=== PATIENT | male | born 1960 | race Caucasian/White ===

== ENCOUNTER 2022-04-10 07:31 | Day surgery (SDC) | payer BC ==
[2022-04-05 11:56] LABS: BASOPHILS % (AUTO) 0.6 % (0-1); EOSINOPHILS # (AUTO) 0.1 X10'3 (0-0.9); EOSINOPHILS % (AUTO) 1.5 % (0-6); HEMATOCRIT 46.8 % (42.0-52.0); HEMOGLOBIN 16.2 g/dl (14.0-17.9); LYMPHOCYTES # (AUTO) 1.1 X10'3 (1.1-4.8); LYMPHOCYTES % (AUTO) 18.4 % (21-51); MEAN CORPUSCULAR HEMOGLOBIN 30.6 PG (27.0-31.0); MEAN CORPUSCULAR HGB CONC 34.6 g/dL (33.0-36.5); MEAN CORPUSCULAR VOLUME 88.4 FL (78-98); MEAN PLATELET VOLUME 7.2 FL (7.4-10.4); MONOCYTES # (AUTO) 0.4 X10'3 (0-0.9); MONOCYTES % (AUTO) 6.9 % (2-12); NEUTROPHILS # (AUTO) 4.5 X10'3 (1.8-7.7); NEUTROPHILS % (AUTO) 72.6 % (42-75); PLATELET COUNT 223 X10'3 (140-440); RED BLOOD COUNT 5.29 X10'6 (4.70-6.10); RED CELL DISTRIBUTION WIDTH 13.4 % (11.5-14.5); WHITE BLOOD COUNT 6.2 X10'3 (4.5-11.0)
[2022-04-05 12:08] LABS: ALANINE AMINOTRANSFERASE 58 U/L (12-78); ALBUMIN 3.8 G/DL (3.4-5.0); ALKALINE PHOSPHATASE 55 IU/L (46-116); ANION GAP 10 (8-16); ASPARTATE AMINO TRANSFERASE 31 U/L (10-37); BILIRUBIN,TOTAL 1.9 MG/DL (0.1-1.0); BLOOD UREA NITROGEN 18 MG/DL (7-18); BUN/CREATININE RATIO 20.7 (5.4-32.0); CHLORIDE 102 MMOL/L (99-107); CREATININE 0.87 MG/DL (0.60-1.10); GLUCOSE 100 MG/DL (70-104); POTASSIUM 3.8 MMOL/L (3.5-5.1); SODIUM 137 MMOL/L (135-145); TOTAL CARBON DIOXIDE 24.9 MMOL/L (24-32); TOTAL PROTEIN 7.7 G/DL (6.4-8.2); eGFR 89 ML/MIN
[2022-04-10] VITALS (10 sets, daily range): BP systolic 140–177; BP diastolic 90–116
[~2022-04-10] VITALS: Ht 177.8 cm; Wt 98.6 kg
[~2022-04-10 07:31] MED LIST: BUPIVACAINE liposomal/PF 13.3 MG/ML vial IM ONE; BUPIVAcaine/PF 2.5 mg/ml (0.25%) 30ml vial ONE; FURO20TA4 PO; LIDOcaine 1% 30ml preserv. free vial ONE; LISI1TAB51 PO; MULT-1085 PO; VITA-268 PO; ceFAZolin inj. 2,000 MG in dextrose 5%-water 100 ML IV ONE; famotidine 20mg tablet PO ONE; ringers solution, lacted 1,000 ML IV SCH
[2022-04-10] MEDS ORDERED: morphine 2 MG/ML inj. syringe IV PRN (09:25)
[2022-04-10] MEDS ORDERED: ringers solution, lacted 1,000 ML IV SCH (09:25)
[2022-04-10] MEDS ORDERED: meperidine/PF 25mg/ml syringe IV PRN ×3 (09:25)
[2022-04-10] MEDS ORDERED: proCHLORperazine 10 MG/2 ml inj IV PRN (09:25)
[2022-04-10] MEDS ORDERED: morphine 4 MG/ML inj SYRINge IV PRN (09:25)
[2022-04-10] MEDS ORDERED: acetaminophen 1,000mg/100ml IV 100 ML IV PRN (09:25)
[2022-04-10] MEDS ORDERED: ondansetron/PF 4mg/2ml inj IV PRN (09:25)
[2022-04-10] MEDS ORDERED: hydrALAZINE 20mg/ml inj. IV PRN (09:25)
[2022-04-10] MEDS ORDERED: labetalol 20mg/4ml (5mg/ml) syringe IV PRN (09:25)
[2022-04-10] MEDS ORDERED: ketorolac trometh. 30mg/ml inj. IV ONE (09:25)
[2022-04-10] MEDS ORDERED: midazolam 1 mg/ML 2ml injection ONE (09:31)
[2022-04-10] MEDS ORDERED: fentaNYL /PF 50mcg/ml 5ml ampule ONE (09:31)
[2022-04-10] MEDS ORDERED: ondansetron/PF 4mg/2ml inj ONE (09:52)
[2022-04-10] MEDS ORDERED: LIDOcaine 2% (20mg/ml) 5ml vial ONE (09:52)
[2022-04-10] MEDS ORDERED: rocuronium 10mg/ml inj IV ONE (09:52)
[2022-04-10] MEDS ORDERED: propofol inj 20 ML IV ONE (09:52)
[2022-04-10] MEDS ORDERED: dexamethasone sod phosphate 4mg/ml inj. ONE (09:53)
[2022-04-10] MEDS ORDERED: glycopyrrolate 0.2mg/ml inj ONE (10:30)
[2022-04-10] MEDS ORDERED: neostigmine methylsulfate 1 MG/ML 10ml vial ONE (10:30)
--- NOTE | 2022-04-10 10:52 | NUR ---
Received from OR via [facility], accompanied by Anesthesiologist and report given by DANIELA Anesthesiologist. PATIENT WAKING UP, DENIES PAIN, V/S WNL, SCD ON , PIV 20G LAC, BANDAIDS LAPS SITES CLOSED C/D/I TO ABDOMEN. Addendum: 04/10/22 at 1112 by Aditya Astorga RN Amended: Links added.
[2022-04-10] MEDS ORDERED: oxyCODONE/APAP 5-325mg tablet PO PRN (11:00)
--- NOTE | 2022-04-10 11:37 | NUR ---
ALL DISCHARGE CRITERIA HAS BEEN MET. VSS, PAIN AT A TOLERABLE LEVEL, ABLE TO SAFELY AMBULATE AND TRANSFER SELF. IV TAKEN OUT WITHOUT ANY COMPLICATIONS. ALL DISCHARGE INSTRUCTIONS COVERED WITH PATIENT AND ALL QUESTIONS ANSWERED. PATIENT TAKEN OUT VIA WHEELCHAIR WITH ALL BELONGINGS TO PERSONAL VEHICLE WHERE FAMILY DROVE PATIENT HOME. Addendum: 04/10/22 at 1159 by Aditya Astorga RN Amended: Links added.
== END 2022-04-10 11:37 | disposition home or self-care (01) ==
LOC: PAS 07:31
PROVIDERS: ATTEND Surgery
DX: K42.9 Umbilical hernia without obstruction or gangrene (principal); M19.90 Unspecified osteoarthritis, unspecified site; Z79.899 Other long term (current) drug therapy; Z98.890 Other specified postprocedural states; Z72.89 Other problems related to lifestyle
CPT/HCPCS: 36415; 49652; 80053; 82948; 85025; 93005; C1781; C9290; J0360; J0690; J1100; J1885; J2250; J2405; J2704; J2710; J3010; J3490; J7030; J7060; J7120; S2900; Z7506; Z7508; Z7512; A4215; A4618